=== PATIENT | female | born 1990 ===

== ENCOUNTER 2021-07-23 04:40 | Day surgery (SDC) | payer OTHER | END 2021-07-23 10:20 | disposition home or self-care (01) | LOC: CIR.AMB 04:40 | PROVIDERS: ATTEND Specialist | DX: K81.1 Chronic cholecystitis (principal); Z86.16 Personal history of COVID-19; E16.2 Hypoglycemia, unspecified; G43.909 Migraine, unspecified, not intractable, without status migrainosus ==